=== PATIENT | male | born 1995 | race Caucasian/White ===

== ENCOUNTER 2016-12-07 00:30 | Emergency (ER) | payer OTHER ==
[2016-12-07] MEDS ORDERED: NORMAL SALINE 1000 ML 2,000 ML IV ONE (00:49)
[2016-12-07] MEDS ORDERED: DIAZEPAM INJ 10 MG/2 ML DISP.SYRIN IV ONE (00:50)
--- NOTE | 2016-12-07 00:55 | ER Document Report ---
ED General - General Chief Complaint: Overdose Stated Complaint: POSSIBLE DRUG INGESTION Cannot obtain history due to: Intoxicated Notes: Patient is a 21-year-old male without medical history who presents in the custody of police and paramedics after being found running around in the street only in his underwear. He was extremely agitated, combative and aggressive with paramedics and police officers. The patient required chemical restraint as well as physical restraint to be brought safely to the emergency department. At time of arrival, patient admits that he took acid tonight. Denies any history of similar symptoms in the past with taking acid on prior occasions. History is otherwise limited secondary to patient's intoxicated nature. Past Medical History - General Information source: Patient - Social History Smoking Status: Never Smoker Frequency of alcohol use: Occasional Drug Abuse: Other - LSD Family History: Reviewed & Not Pertinent Review of Systems - Review of Systems -: Yes ROS unobtainable due to patient's medical condition Physical Exam - Vital signs Vitals: Temp Pulse Resp BP Pulse Ox 97.4 F 115 H 19 149/85 H 100 12/07/16 00:49 12/07/16 00:49 12/07/16 00:49 12/07/16 00:49 12/07/16 00:49 Interpretation: Hypertensive, Tachycardic Notes: PHYSICAL EXAMINATION: GENERAL: Agitated, appears intoxicated but is redirectable HEAD: Atraumatic, normocephalic. EYES: Pupils equal round and reactive to light, extraocular movements intact, sclera anicteric, conjunctiva are normal. ENT: nares patent, oropharynx clear without exudates. Moderately dry mucous membranes. NECK: Normal range of motion, supple without lymphadenopathy LUNGS: Breath sounds clear to auscultation bilaterally and equal. No wheezes rales or rhonchi. HEART: Regular tachycardia without murmurs ABDOMEN: Soft, nontender, normoactive bowel sounds. No guarding, no rebound. No masses appreciated. EXTREMITIES: Normal range of motion, no pitting or edema. No cyanosis. NEUROLOGICAL: No focal neurological deficits. Moves all extremities spontaneously and on command. PSYCH: Paranoid, asking repetitive questions SKIN: Warm, Dry, normal turgor, diffuse abrasions and superficial lacerations Course - Re-evaluation Re-evalutation: 12/07/16 00:54 She presents after taking acid, becoming quite agitated and paranoid. He was found by police running around in only his underwear with diffuse contusions and lacerations secondary to running through shrubbery and trying to climb fences. He also probably tried to break through a window. At time of arrival patient is mostly calm and cooperative. He is frequently asking the same questions. He admits to using only LSD tonight. Denies any suicidal intention and states that he has used acid in the past but never had reactions like this. Will proceed with fluids, additional anxiolysis, and reassess 12/07/16 02:50 Patient's CK has returned mildly elevated at 776, below threshold to diagnosis rhabdomyolysis. Patient is clearing from his initial ingestion of LSD and is now much more coherent alert and oriented 4. IV fluids have been administered. He remains calm and cooperative. Will monitor for the rest the evening and when morning arrives patient can be discharged in custody with a sober contact. He is not currently under police custody at this time. 12/07/16 04:10 Patient is now completely cleared up, speaking with clear thought processes and denies any further feelings of intoxication. He does at this time appear completely sober. He has ate and drank without difficulty. He will be discharged with a friend. - Vital Signs Vital signs: Temp Pulse Resp BP Pulse Ox 97.4 F 115 H 18 139/69 H 100 12/07/16 00:49 12/07/16 00:49 12/07/16 04:01 12/07/16 04:00 12/07/16 04:01 - Laboratory Result Diagrams: 12/07/16 01:15 12/07/16 01:15 Laboratory results interpreted by me: 12/07/16 12/07/16 01:15 01:15 WBC 13.3 H Sodium 146.6 H Glucose 159 H Creatine Kinase 776 H Salicylates < 1.0 L Acetaminophen < 10 L - EKG Interpretation by Me Additional EKG results interpreted by me: 12/07/16 02:51 Sinus tachycardia. Rate 106. No ST elevations or depressions. QTC is 457. 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 Please be sure to drink plenty of fluids over the next several days. Return if you have any additional concerns.
[2016-12-07 01:29] LABS: HEMATOCRIT 41.3 % (37.9-51.0); HEMOGLOBIN 14.4 g/dL (13.5-17.0); HGB HCT DIFFERENCE 1.9; MEAN CORPUSCULAR HEMOGLOBIN 31.6 pg (27.0-33.4); MEAN CORPUSCULAR HGB CONC 34.7 g/dL (32.0-36.0); MEAN CORPUSCULAR VOLUME 91 fl (80-97); RED BLOOD COUNT 4.54 10^6/uL (4.35-5.55); RED CELL DISTRIBUTION WIDTH 12.5 % (11.5-14.0); WHITE BLOOD COUNT 13.3 10^3/uL (4.0-10.5)
[2016-12-07 01:42] LABS: BLOOD UREA NITROGEN 14 mg/dL (7-20); CALCIUM 10.2 mg/dL (8.4-10.2); CREATINE KINASE 776 U/L (55-170); CREATININE RESULT 1.25 mg/dL (0.52-1.25); GLUCOSE 159 mg/dL (75-110)
[2016-12-07 02:02] LABS: ANION GAP 18 (5-19); CARBON DIOXIDE 23 mmol/L (22-30); CHLORIDE 106 mmol/L (98-107); POTASSIUM 4.4 mmol/L (3.6-5.0); SODIUM 146.6 mmol/L (137-145)
[2016-12-07 05:36] VITALS: BP 147/81
--- NOTE | 2016-12-07 10:53 | EKG REPORT ---
SEVERITY:- ABNORMAL ECG - SINUS TACHYCARDIA PROBABLE LEFT VENTRICULAR HYPERTROPHY : Confirmed by: Shravan Santos 07-Dec-2016 10:52:57
== END 2016-12-07 05:03 | disposition home or self-care (01) ==
LOC: ER 00:30
DX: T40.8X1A Poisoning by lysergide [LSD], accidental (unintentional), initial encounter (principal); F06.2 Psychotic disorder with delusions due to known physiological condition; R00.0 Tachycardia, unspecified; T14.8 Other injury of unspecified body region; X58.XXXA Exposure to other specified factors, initial encounter; Z78.1 Physical restraint status
CPT/HCPCS: 93005; 99284; 96361; 96374; 36415; 82550; 80307 ×2; 85027; 80048; 93010; J3360; J7030